=== PATIENT | female | born 1970 | race Caucasian/White ===

== ENCOUNTER 2016-08-09 09:17 | Emergency (ER) | payer OTHER ==
[~2016-08-09] VITALS: Ht 165.1 cm; Wt 127.0 kg
[2016-08-09 09:37] VITALS: BP 128/74
[2016-08-09] MEDS ORDERED: KETOROLAC TROMETH 60MG/2ML VIAL IM ONE (10:30)
== END 2016-08-09 11:45 | disposition home or self-care (01) ==
LOC: ER 09:17
DX: M23.92 Unspecified internal derangement of left knee (principal); Z88.0 Allergy status to penicillin
CPT/HCPCS: 29505; 73562; 96372; 99284; J1885